=== PATIENT | female | born 1950 | race Caucasian/White ===

== ENCOUNTER 2024-03-16 11:04 | Outpatient (RCR) | payer MEDICARE, BC, SELFPAY ==
--- NOTE | 2024-03-01 15:28 | CTCTXPLN_ITS ---
[facility] [address] [place], [place] [address] Physician Clinical Treatment Planning Note Date of Service: 03/01/2024 Name: ASHLEE DAVEY SalasB.: 1950 The patient has agreed to proceed with Radiation therapy. Tests and supporting medical records were interpreted to assist in defining the tumor location and extent of disease. Further imaging will be necessary to contour and delineate the volume to which the XRT will be provided. A. Treatment Intent: Curative B. Modality: 6 MV C. Requested Technique: VMAT D. Treatment Site: Head and neck E. Critical structures to be contoured on plan: Head and neck F. In order to accomplish this plan, I am ordering/Prescribing the followin. Simulations (s) will be performed to accomplish a reproducible treatment position, to determine op timal treatment portals/beam arrangements, to design beam modifying devices and verify treatme head a nd neck nt portals on patient prior to the commencement of Radiation Therapy. 2. Devices; for immobilization and beam shaping: Aquaplast 3. CT Guidance for placement of XRT smallwood Scan area: 4. Portal images Frequency: 5. Invivo transit dose measurement once per week on all VMAT patients. 6. Special Physics Consult Requested for: 7. Other requests: G. Dose Objectives: Curative Electronically signed by: Renny Lai M.D. 03/01/2024 3:26 PM
--- NOTE | 2024-03-01 15:30 | CTCTXPLNST_ITS ---
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 Pt Treatment Intent: curative palliative other: Stage: Procedure CPT # Ordered Spec. Procedure 43008 Damian Complex (set-up) 01731 Head and neck 1 Damian Simple 87905 IMRT Plan 31328 1 MLC Devices VMAT 20097 3 Damian 3 D 15563 TRTMT dev Complex 79466 aquaplast 1 TRTMT dev simple 26990 Basic Bryant 65046 9 Special Dosimetry 16561 Spec Physics 70297 Port Films 15411 SRS Cranial/1FX 81319 SBR 5 FX or Less /ex: 5 = 5 fx 66784 IMRT Simple 11618 6000 30 IMRT Complex 03976 IGRT 57000 28 Rad del com 6-10 31590 Rad del com 11- 73394 Cont Med Physics 49586 6 Treatment Planning 35014 1 Rad del com 20 mev 92406 Rad del inter 6- 82115 Rad del inter 02-06 65244 Rad del simple 6-10 43034 Rad del simple 11- 21191 Special Port Plan 85432 TRTMT dev inter 70941 Isodose Complex 87807 Isodose simple 28158 Resp Motion Mgmt Simulation 65670 Placement of Fiducial Markers 40206 Electronically Signed By: Renny Lai MD, DABR 03/01/2024 3:27 PM
--- NOTE | 2024-03-02 17:10 | CTCFLWUP_ITS ---
[facility] [address] [place], [place] [address] FOLLOW-UP NOTE Date: 03/01/2024 MR#: [id number] Name: ASHLEE MARISCAL : 1950 Dx: C 41.1 SCCA CA mandible. Identification. Patient with diagnosis of squamous SCCA of the mandible, biopsy of left neck lymph n ode 11/11/2023. 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 PET scan 12/01/2023 hypermetabolic right submental masses with weekly hypermetabolic pulmonary nodules . CT chest 12/22/2023 at least 20 pulmonary nodules along with mediastinal lymphadenopathy. Spoke with Dr. Tate systems engineer in [place] who has followed patient along with [facility] that she is h ad these lung lesions for at least 2 years which appears to be nononcologic origin. MRI 12/08/2023, abnormal thickening anterior and posterior to the right body of the mandible with 1.1 cm asymmetrical focus enhancement right tongue base laterally. Mild soft tissue thickening right sub mandibular gland and right masseter and multiple nonenlarged 1 and 2 cervical lymph nodes. 2.6 cm le ft thyroid mass. Patient underwent major surgery at [place] for squamous cell CA the mandible With segmental mandibulectomy bilateral neck dissection split-thickness skin graft defect reconstruct ion with radial forearm free flap split-thickness skin graft. 02/01/2024. Final path revealed #!. Invasive keratinizing squamous SCCA 2.3 cm depth invasion 4.2 mm. #2. Lateral mandible periosteum focal cluster of a TPS cells less than 0.1 mm cannot exclude focal t umor involvement. #3. 1/3 level 1B lymph nodes left 0.7 cm metastatic squamous SCCA #4. 1 / 8 level 2 lymph node left 0.3 cm [id number] primary tumor site greater than 2 cm and multiple ipsilateral nodes less than 6 cm #5. Pulmonary nodules appear to be nononcologic origin according to systems engineer in [place] and [facility] which has followed patient [place] tumor board recommended radiation only Will treat to primary site and oral cavity approximately 6000 cGy with approximate 5400 centigray to the ipsilateral left neck and 4500 to 5000 cGy to nearby subclinical sites. Side effects explained. Electronically signed by: Renny Lai M.D. 03/02/2024 5:08 PM
== END 2024-03-20 23:59 | disposition home or self-care (01) ==
LOC: SCTC 11:04
PROVIDERS: PCP Family Medicine; Referring Provider Family Medicine; Visit Provider Radiology Therapeutic Radiology
DX: C41.1 Malignant neoplasm of mandible (principal); C77.0 Secondary and unspecified malignant neoplasm of lymph nodes of head, face and neck; R91.8 Other nonspecific abnormal finding of lung field
CPT/HCPCS: 77014; 77290; 77300; 77301; 77334; 77338; 99213; G0463

== ENCOUNTER 2024-04-20 11:21 | Outpatient (RCR) | payer MEDICARE, BC, SELFPAY | END 2024-04-20 23:59 | disposition home or self-care (01) | LOC: SCTC 11:21 | PROVIDERS: PCP Family Medicine; Referring Provider Family Medicine; Visit Provider Radiology Therapeutic Radiology | DX: Z51.0 Encounter for antineoplastic radiation therapy (principal); C41.1 Malignant neoplasm of mandible; C77.0 Secondary and unspecified malignant neoplasm of lymph nodes of head, face and neck; L59.9 Disorder of the skin and subcutaneous tissue related to radiation, unspecified; Y84.2 Radiological procedure and radiotherapy as the cause of abnormal reaction of the patient, or of later complication, without mention of misadventure at the time of the procedure | CPT/HCPCS: 77336; 77385 ==

== ENCOUNTER 2024-05-18 11:20 | Outpatient (RCR) | payer MEDICARE, BC, SELFPAY ==
--- NOTE | 2024-04-23 12:00 | CTCTRTNOTE_ITS ---
[facility] [address] [place], [place] [address] Weekly Management Date: 04/23/2024 ?? Name: ASHLEE MARISCAL : 1950 A. Patient is currently at 3230 cGy. B. Patient is tolerating treatment well. C. Patient is having the following side effects: Some pain upon swallowing and blisters in mouth.. Appears clean. D. . Keep using salt and soda solution. E. Hydrocodone syrup as needed. Reeval next Tuesday. Electronically signed by: Renny Lai M.D. 04/23/2024 11:57 AM
== END 2024-05-18 23:59 | disposition home or self-care (01) ==
LOC: SCTC 11:20
PROVIDERS: PCP Family Medicine; Referring Provider Family Medicine; Visit Provider Radiology Therapeutic Radiology
DX: Z51.0 Encounter for antineoplastic radiation therapy (principal); C41.1 Malignant neoplasm of mandible; C77.0 Secondary and unspecified malignant neoplasm of lymph nodes of head, face and neck; R91.8 Other nonspecific abnormal finding of lung field
CPT/HCPCS: 77336; 77385

== ENCOUNTER 2024-06-07 10:33 | Outpatient (RCR) | payer MEDICARE, BC, SELFPAY ==
--- NOTE | 2024-05-21 11:54 | CTCTRTNOTE_ITS ---
[facility] [address] [place], [place] [address] Weekly Management Date: 05/21/2024 ?? Name: ASHLEE MARISCAL : 1950 A. Patient is currently at 4940 cGy. B. Patient is experiencing moderate mucositis but still able to swallow. Using Magic mouthwash. Weight 131 stable. C. Resume radiation therapy. Finishes XRT this week. Electronically signed by: Renny Lai M.D. 05/21/2024 11:52 AM
== END 2024-06-18 23:59 | disposition home or self-care (01) ==
LOC: SCTC 10:33
PROVIDERS: PCP Family Medicine; Referring Provider Family Medicine; Visit Provider Radiology Therapeutic Radiology
DX: Z51.0 Encounter for antineoplastic radiation therapy (principal); C41.1 Malignant neoplasm of mandible; C77.0 Secondary and unspecified malignant neoplasm of lymph nodes of head, face and neck; K12.33 Oral mucositis (ulcerative) due to radiation; Y84.2 Radiological procedure and radiotherapy as the cause of abnormal reaction of the patient, or of later complication, without mention of misadventure at the time of the procedure
CPT/HCPCS: 77336; 77385; 99212; G0463

== ENCOUNTER 2024-07-04 13:59 | Outpatient (RCR) | payer MEDICARE, BC, SELFPAY ==
--- NOTE | 2024-06-20 13:53 | CTCFLWUP_ITS ---
[facility] 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 Patient made an extra appointment to see me today because patient had some discharges and a possible sinus infection and also felt that her face was getting redder and puffier later in the day. Patient had previously taken prednisone which made her face a bit more cushingoid. Took a picture of her face. Patient is lung was clear. And elected to place patient on Bactrim double strength twice daily for 10 days. Patient is allergic to penicillin and cannot take cephalosporins either. Gave son my email address to have me kept informed on her progress. Will evaluate her in 2 weeks. Electronically signed by: Renny Lai M.D. 06/20/2024 1:50 PM
== END 2024-07-18 23:59 | disposition home or self-care (01) ==
LOC: SCTC 13:59
PROVIDERS: PCP Family Medicine; Referring Provider Family Medicine; Visit Provider Radiology Therapeutic Radiology
DX: C08.0 Malignant neoplasm of submandibular gland (principal); Z88.0 Allergy status to penicillin; R91.8 Other nonspecific abnormal finding of lung field
CPT/HCPCS: 99212; 99213; G0463

== ENCOUNTER → 2024-07-17 | Outpatient (CLI) | payer MEDICARE, BC, SELFPAY ==
--- NOTE | 2024-07-17 09:30 | XR_ITS ---
EXAMINATION: PET/CT FUSION SKULL TO THIGH EXAM DATE AND TIME: July 17, 2024 1056 hours Comparison 12/01/2023 INDICATIONS: Diagnosis submandibular cancer, restaging post treatment, PET/CT scan 12/01/2023 hypermetabolic right submental masses 16 x 24 mm, 9 x 9 mm, weakly hypermetabolic pulmonary nodules, the largest in the left upper lobe 12 mm CTDI:vol (mGy) 4.65 DLP: (mGycm) 367 PROCEDURE: 13.6 mCi FDG was administered intravenously To allow for distribution and uptake of radiotracer, the patient was allowed to rest quietly in a shielded room. Imaging was performed on an integrated 16-slice PET/CT scanner, with scanning from the skull base to the mid thigh. Serum blood glucose at the time of the injection was measured 94 mg/dL. CT scanning was performed without oral or intravenous contrast material. FINDINGS: Head and Neck: 18 mm focus hypermetabolic activity in the posterior right oropharynx without obvious soft tissue mass on the corresponding CT examination 14 mm hypermetabolic focus right submental compared to [address] scan 12/01/2023 8mm submental hypermetabolic focus compared to 9 mm 12/01/2023 Chest: Hypermetabolic minimal left pleural disease Numerous bilateral subcentimeter pulmonary nodules which have increased in number several increased in size compared to the 12/01/2023 exam Abdomen and Pelvis: There is no matthieu hypermetabolism in retroperitoneal or pelvic chains. The spleen is normal in size and FDG avidity. Musculoskeletal: Marrow uptake is within normal range. IMPRESSION: Hypermetabolic right submental lymph nodes are smaller compared to the PET CT scan 12/01/2023 Progression of metastatic pulmonary nodular disease compared to PET CT scan December 01, 2023, suggest follow-up high-resolution CT chest without contrast to compare with the December 22, 2023 CT chest exam
== END | disposition home or self-care (01) ==
LOC: CDIM 09:16
PROVIDERS: PCP Radiology Therapeutic Radiology; Referring Provider Radiology Therapeutic Radiology; Visit Provider Radiology Therapeutic Radiology
DX: R91.1 Solitary pulmonary nodule (principal); C08.0 Malignant neoplasm of submandibular gland
CPT/HCPCS: 78815; A9552

== ENCOUNTER 2024-07-19 14:03 | Outpatient (RCR) | payer MEDICARE, BC, SELFPAY ==
--- NOTE | 2024-07-19 16:07 | CTCFLWUP_ITS ---
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 Patient with SCCA mandible underwent segmental mandibulectomy bilateral neck dissection split-thickness skin graft construction completed 02/01/2024 at [facility]. Final path revealedSCCA 2.3 cm depth of invasion 4.2 mm. Lateral mandibular periosteum focal cluster of TPS cells less than 0.1 mm could not include focal tumor involvement. 1/3 level 1B lymph nodes left 0.7 cm metastatic squamous cell CA. 1 of 8 level 2 lymph nodes left 0.3 cm. Postop XRT completed 05/24/2024 5700 cGy Patient states that she is still somewhat bothered by the swollen face but generally is having less pain and eating better. BP 182/80 weight 132 4 pound weight gain compared to 2 months ago. Mucositis improving. PET/CT 07/17/2024 hypermetabolic right submental lymph nodes smaller compared to prior PET with progression of metastatic nodular disease in lung compared to prior PET. Assessment.1. Stage Adelia [id number] primary tumor site greater than 2 cm and multiple ipsilateral lymph nodes less than 6 cm. 2. Check high-resolution CT of the chest without contrast as recommended. 3. See patient back again in 2 months. Electronically signed by: Renny Lai M.D. 07/19/2024 4:05 PM
== END 2024-08-18 23:59 | disposition home or self-care (01) ==
LOC: SCTC 14:03
PROVIDERS: PCP Family Medicine; Referring Provider Family Medicine; Visit Provider Radiology Therapeutic Radiology
DX: C08.0 Malignant neoplasm of submandibular gland (principal)
CPT/HCPCS: 99212; G0463

== ENCOUNTER → 2024-08-03 | Outpatient (CLI) | payer MEDICARE, BC, SELFPAY ==
[2024-08-03 09:34] LABS: Collection Type, Urine Clean Catch; Squamous Epithelial Cell,Urine 0 /hpf (0-5); WBC,Urine 0 /hpf (0-5)
[2024-08-03 10:30] LABS: Basophils # (Auto) 0.1 Thou/mm3 (0.0-0.2); Basophils % (Auto) 1 % (0-2.5); Eosinophils # (Auto) 0.4 Thou/mm3 (0.0-0.5); Eosinophils % (Auto) 5 % (0-10); Hematocrit 40.7 % (36.0-46.0); Hemoglobin 12.9 g/dL (12.0-16.0); Immature Granulocytes % (Auto) 1 % (0-0); Immature Granulocytes Auto 0.07 Thou/mm3 (0.00-0.00); Lymphocytes # (Auto) 0.7 Thou/mm3 (1.0-4.8); Lymphocytes % (Auto) 8 % (10-50); Mean Corpuscular HGB Conc 31.7 g/dl (31.0-37.0); Mean Corpuscular Hemoglobin 29.2 pg (25.0-35.0); Mean Corpuscular Volume 92 fL (80-100); Monocytes # (Auto) 0.9 Thou/mm3 (0.0-0.8); Monocytes % (Auto) 10 % (0-12); Neutrophils # (Auto) 6.6 Thou/mm3 (1.8-7.7); Neutrophils % (Auto) 76 % (37-80); Nucleated Red Blood Cell % 0 /100 WBC (0); Platelet Count 400 Thou/mm3 (140-440); RDW Standard Deviation 48.2 fL (36.4-46.3); Red Blood Count 4.42 Miln/mm3 (4.00-5.20); White Blood Count 8.7 Thou/mm3 (3.6-11.0)
[2024-08-03 10:52] LABS: Alanine Aminotransferase 19 U/L (10-49); Albumin, Serum 4.2 gm/dL (3.4-4.8); Albumin/Globulin Ratio 1.2 (1.2-2.2); Alkaline Phosphatase 131 U/L (46-116); Anion Gap 9 (7-16); Aspartate Amino Transferase 33 U/L (0-34); BUN/Creatinine Ratio 30 Ratio (12-20); Bilirubin,Total 0.4 mg/dL (0.3-1.2); Blood Urea Nitrogen 18 mg/dL (9-23); Calcium 9.2 mg/dL (8.3-10.6); Calcium (Corrected) 9.2 mg/dL (8.5-10.1); Carbon Dioxide 26.8 mMol/L (20.0-31.0); Cardiac Risk Estimate 3.5 RATIO (3.7-5.6); Chloride 102 mMol/L (98-107); Cholesterol 182 mg/dL (132-200); Creatinine (Component) 0.6 mg/dL (0.6-1.3); Globulin 3.4 gm/dL (2.3-3.5); Glucose 104 mg/dL (74-106); HDL Cholesterol 52 mg/dL (40-60); LDL Cholesterol,Calculated 88 mg/dL (0-130); Osmolality,Calculated 277 (275-295); Sodium 138 mMol/L (136-145); Total Protein 7.6 gm/dL (5.7-8.2); Triglycerides 208 mg/dL (30-150); Uric Acid 4.6 mg/dL (3.1-7.8); eGFR > 60 See Note
[2024-08-03 14:56] LABS: Bilirubin,Urine Negative (Negative); Blood,Urine Trace (Negative); Clarity,Urine Clear (Clear/Hazy); Color,Urine Lt-Yellow (Lt Yel-Yel); Glucose, Urine Negative (Negative); Ketones,Urine Negative (Negative); Leukocyte Esterase,Urine Negative (Negative); Nitrite,Urine Negative (Negative); Protein,Urine Negative (Neg - Trace); Specific Gravity,Urine 1.008 (1.001-1.035); Urobilinogen,Urine Negative mg/dL (0.0-1.0)
[2024-08-03 16:15] LABS: RBC,Urine 1 /hpf (0-3)
[2024-08-03 16:16] LABS: Bacteria,Urine Rare
== END | disposition home or self-care (01) ==
LOC: COPL 09:05
PROVIDERS: PCP Family Medicine; Referring Provider Family Medicine; Visit Provider Family Medicine
DX: Z00.00 Encounter for general adult medical examination without abnormal findings (principal); L43.8 Other lichen planus; I10 Essential (primary) hypertension; E78.2 Mixed hyperlipidemia; E79.2 Myoadenylate deaminase deficiency; D64.9 Anemia, unspecified; C03.1 Malignant neoplasm of lower gum; E87.5 Hyperkalemia
CPT/HCPCS: 36415; 80053; 80061; 81001; 84550; 85025

== ENCOUNTER 2024-10-11 14:57 | Outpatient (RCR) | payer MEDICARE, BC, SELFPAY ==
--- NOTE | 2024-09-18 17:17 | CTCFLWUP_ITS ---
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 Patient with SCCA Mandible gingiva underwent segmental mandibulectomy bilateral neck dissection split-thickness skin graft construction completed 02/01/2024 at [facility] Final path revealed SCCA 2.3 cm depth invasion 4.2 mm. Lateral mandibular periosteum focal cluster of TPS cells less than 0.1 mm and could not exclude focal tumor involvement.. 1 of 3 level 1B lymph nodes left 0.7 cm metastatic squamous of CA. 1 of 8 level 2 lymph nodes left 0.3 cm met CA. Postop XRT completed 05/24/2024 5700 Has had residual facial swelling and moderate discomfort in the oral cavity. Results see patient today she actually appears better than previously. Had CT scan performed at [facility] postsurgery 08/22/2024. Radiation changes no cervical lymphadenopathy opacification of segmental bronchi and visualized lungs with scattered parenchymal nodules similar to PET of 07/17/2024 appearing complex. This could be infection or inflammation which requires regular checkups. According to radiologist. All in all patient appears to have an satisfactory outcome following surgery and postop radiation. Assessment #1 stage Maxim [id number] mandibular gingiva status post mandibulectomy bilateral neck dissection [facility]. 02/01/2024 #2. postop XRT 5700 centigray completed 05/24/2024. #3. clinical exam and radiographs PET and CT with no sign of recurrence or obvious mets. #4. History of lichen planus oral cavity alpha-1 antitrypsin deficiency .#5. Will see her back in 4 months for follow-up with a new CT scan and also has a follow-up at [facility] Lety Dinh MD Electronically signed by: Renny Lai M.D. 09/18/2024 5:15 PM
== END 2024-10-18 23:59 | disposition home or self-care (01) ==
LOC: SCTC 14:57
PROVIDERS: PCP Family Medicine; Referring Provider Family Medicine; Visit Provider Radiology Therapeutic Radiology
DX: Z08 Encounter for follow-up examination after completed treatment for malignant neoplasm (principal); Z85.818 Personal history of malignant neoplasm of other sites of lip, oral cavity, and pharynx; Z92.3 Personal history of irradiation; Z90.09 Acquired absence of other part of head and neck; Z87.2 Personal history of diseases of the skin and subcutaneous tissue; E88.01 Alpha-1-antitrypsin deficiency
CPT/HCPCS: 99213; G0463

== ENCOUNTER → 2024-11-13 | Outpatient (CLI) | payer MEDICARE, BC, SELFPAY ==
--- NOTE | 2024-11-13 13:15 | XR_ITS ---
Examination: Breast ultrasound complete, bilateral Date and time of exam: November 13, 2024 1252 hrs. Indications: Diagnosis fibrocystic breast disease Technique: Real-time grayscale ultrasonographic imaging bilateral breasts, including all 4 quadrants as well as nipple retroareolar and axillary regions. Findings: Sonographic images right breast Multiple benign cysts Retroareolar circumscribed nodule 4 x 5 mm Sonographic images left breast Benign cyst 2:00 nodule circumscribed 5 x 5 mm 2:00 nodule circumscribed 4 x 3 mm Impression: BI-RADS Category 3: Probably benign findings One additional 6 month bilateral breast sonography follow-up is needed to document stability of solid nodules described above
--- NOTE | 2024-11-13 14:15 | XR_ITS ---
Examination: Screening digital mammography, bilateral Computer aided detection 3-D breast Tomosynthesis, bilateral Date and time of exam: 11/13/2024, 2:38 PM Comparisons: August 2019 through May 2023 Indications: Screening Technique: Nonmagnified MLO, CC views of the breasts to been obtained, reconstructed from 3-D Tomosynthesis images. R2 computer aided detection program utilized for evaluation of suspicious masses and/or abnormal calcifications. 3-D Tomosynthesis images obtained. Technologist: Findings: The breasts are heterogeneously dense, which may obscure small masses. No evidence of abnormal masses or suspicious calcifications. Impression: BI-RADS category 1: Negative findings (within normal) Recommend 1 year follow-up mammogram
== END | disposition home or self-care (01) ==
PROVIDERS: PCP Family Medicine; Referring Provider Specialist; Visit Provider Specialist
DX: Z12.31 Encounter for screening mammogram for malignant neoplasm of breast (principal); R92.313 Mammographic fatty tissue density, bilateral breasts; N63.41 Unspecified lump in right breast, subareolar; N63.21 Unspecified lump in the left breast, upper outer quadrant
CPT/HCPCS: 76641; 77063; 77067

== ENCOUNTER → 2024-12-19 | Outpatient (CLI) | payer MEDICARE, BC, SELFPAY ==
[2024-12-19 13:34] LABS: Basophils # (Auto) 0.1 Thou/mm3 (0.0-0.2); Basophils % (Auto) 1 % (0-2.5); Eosinophils # (Auto) 0.5 Thou/mm3 (0.0-0.5); Eosinophils % (Auto) 7 % (0-10); Hematocrit 41.5 % (36.0-46.0); Hemoglobin 13.0 g/dL (12.0-16.0); Immature Granulocytes Auto 0.02 Thou/mm3 (0.00-0.00); Lymphocytes # (Auto) 1.1 Thou/mm3 (1.0-4.8); Lymphocytes % (Auto) 15 % (10-50); Mean Corpuscular HGB Conc 31.3 g/dl (31.0-37.0); Mean Corpuscular Hemoglobin 29.3 pg (25.0-35.0); Mean Corpuscular Volume 94 fL (80-100); Monocytes # (Auto) 0.7 Thou/mm3 (0.0-0.8); Monocytes % (Auto) 10 % (0-12); Neutrophils # (Auto) 4.8 Thou/mm3 (1.8-7.7); Neutrophils % (Auto) 67 % (37-80); Nucleated Red Blood Cell # 0.00 Thou/mm3 (0.00-0.00); Nucleated Red Blood Cell % 0 /100 WBC (0); Platelet Count 346 Thou/mm3 (140-440); RDW Standard Deviation 45.6 fL (36.4-46.3); Red Blood Count 4.43 Miln/mm3 (4.00-5.20); White Blood Count 7.2 Thou/mm3 (3.6-11.0)
[2024-12-19 13:58] LABS: Alanine Aminotransferase 20 U/L (10-49); Albumin, Serum 4.1 gm/dL (3.4-4.8); Albumin/Globulin Ratio 1.4 (1.2-2.2); Alkaline Phosphatase 141 U/L (46-116); Anion Gap 8 (7-16); Aspartate Amino Transferase 39 U/L (0-34); BUN/Creatinine Ratio 27 Ratio (12-20); Bilirubin,Total 0.3 mg/dL (0.3-1.2); Blood Urea Nitrogen 16 mg/dL (9-23); Calcium 9.6 mg/dL (8.3-10.6); Calcium (Corrected) 9.6 mg/dL (8.5-10.1); Carbon Dioxide 28.7 mMol/L (20.0-31.0); Chloride 101 mMol/L (98-107); Creatinine (Component) 0.6 mg/dL (0.6-1.3); Globulin 2.9 gm/dL (2.3-3.5); Glucose 109 mg/dL (74-106); Osmolality,Calculated 277 (275-295); Potassium 4.8 mMol/L (3.4-5.1); Sodium 138 mMol/L (136-145); Total Protein 7.0 gm/dL (5.7-8.2); eGFR > 60 See Note
== END | disposition home or self-care (01) ==
LOC: COPL 11:41 → SCTO 11:41
PROVIDERS: PCP Family Medicine; Referring Provider Radiology Therapeutic Radiology; Visit Provider Radiology Therapeutic Radiology
DX: C08.0 Malignant neoplasm of submandibular gland (principal)
CPT/HCPCS: 36415; 80053; 85025

== ENCOUNTER → 2024-12-20 | Outpatient (CLI) | payer MEDICARE, BC, SELFPAY ==
--- NOTE | 2024-12-20 11:30 | XR_ITS ---
Examination: CT soft tissue neck, with intravenous contrast CT chest with intravenous contrast 2-D coronal reconstructions. 2-D sagittal reconstructions. Date and time of exam :December 20, 2024, 1217 hours, comparison PET/CT scan July 17, 2024, CT chest December 22, 2023 INDICATIONS: Diagnosis malignant neoplasm submandibular gland, throat discomfort one year, status post surgery in the neck, PET/CT scan July 17, 2024 hypermetabolic submental lymph nodes. CTDI: vol (mGy):20.1 DLP: (mGycm):645 Technique: 1.25 mm axial sections of the neck and chest post intravenous administration 60 cc Isovue-370 Coronal and sagittal reconstructions have been obtained. Low dose protocols were performed. One or more of the following dose reduction techniques were used; automated exposure control, adjustment of the mA and/or KV according to patient size, use of iterative reconstruction technique. Findings: 17 mm left thyroid nodule Significant right maxillary sinus disease Symmetrical nasopharynx oropharynx Post surgical changes in the submandibular region without malignant lymphadenopathy Multiple surgical clips surrounding the mandible Right carotid vascular calcification The larynx appears normal The epiglottis appears normal No thoracic aortic aneurysmal dilatation No pulmonary artery filling defects No paratracheal tracheobronchial or bronchopulmonary adenopathy Multiple bilateral pulmonary nodules A 7 mm pulmonary nodule left upper lobe on the prior study is not identified on this exam The 12 mm pulmonary nodule right upper lobe is not identified on this study No interval pneumonia or pulmonary edema Fatty infiltration throughout the liver Prominent osteopenia, advanced disc narrowing C5-C6 Vision impression:: 17 mm left thyroid nodule Significant right Sinus disease Postsurgical changes in the submental region without malignant lymphadenopathy Improvement in pulmonary nodular metastatic disease with at least 2 nodules noted on prior study not identified on the current exam, suggest continued follow-up CT chest without contrast
== END | disposition home or self-care (01) ==
LOC: CCTX 10:59
PROVIDERS: PCP Family Medicine; Referring Provider Radiology Therapeutic Radiology; Visit Provider Radiology Therapeutic Radiology
DX: E04.1 Nontoxic single thyroid nodule (principal); C78.00 Secondary malignant neoplasm of unspecified lung; C08.0 Malignant neoplasm of submandibular gland
CPT/HCPCS: 70491; 71260; A4649; Q9967

== ENCOUNTER → 2025-01-30 | Outpatient (CLI) | payer MEDICARE, BC, SELFPAY ==
[2025-01-30 12:25] LABS: Free T3 3.2 pg/mL (2.3-4.2); Free T4 (Free Thyroxine) 1.20 ng/dL (0.89-1.76); Thyroid Stimulating Hormone 0.71 uIU/mL (0.55-4.78)
== END | disposition home or self-care (01) ==
LOC: COPL 11:13
PROVIDERS: PCP Family Medicine; Referring Provider Family Medicine; Visit Provider Family Medicine
DX: E04.1 Nontoxic single thyroid nodule (principal)
CPT/HCPCS: 36415; 84439; 84443; 84481

== ENCOUNTER 2025-01-31 14:30 | Outpatient (RCR) | payer MEDICARE, BC, SELFPAY ==
--- NOTE | 2025-01-31 15:14 | CTCFLWUP_ITS ---
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 Patient with squamous SCCA mandible gingiva underwent segmental mandibulectomy bilateral neck dissection split-thickness skin graft construction completed 02/01/2024 at [facility]. Final path revealed SCCA 2.3 cm depth of invasion 4.2 mm. Lateral mandibular periosteum cluster of TPS cells less than 0.1 mm and cannot exclude focal tumor involvement. 1/ level 1B lymph nodes left 0.7 cm metastatic squamous SCCA. 07/17/2024/ Level 2 lymph nodes left 0.3 mm met CA. Tumor stage LUPE [id number] primary tumor size greater than 2 cm and multiple ipsilateral lymph nodes less than 6 cm. Postop XRT completed 05/24/2024 5700 cGy. TFTs ordered by primary care physician which were euthyroid. Posttreatment PET hypermetabolic right seventh lymph node smaller whereas there was suggestion of progression of pulmonary nodular disease. CT scan neck chest 01-12 revealed postsurgical changes in submental region without malignant lymphadenopathy and improvement in pulmonary nodular disease 17 mm left thyroid nodule noted. A#!. Stage LUPE pT2 pN2b mandibular gingiva status post mandibulectomy bilateral neck dissection [facility] 02/01/2024. A#2, postop XRT 5700 cGy completed 05/24/2024. A#3. Clinical exam and radiographs PET and CT with no sign of recurrence or obvious mets. A#4. History of lichen planus oral cavity alpha-1 antitrypsin deficiency. A#5. Recent [facility] eval reportedly unremarkable. Has follow-up in 4 months. A#6. I will also see her back in 4 months time. Electronically signed by: Renny Lai M.D. 01/31/2025 3:11 PM
== END 2025-02-17 23:59 | disposition home or self-care (01) ==
LOC: SCTC 14:30
PROVIDERS: PCP Family Medicine; Referring Provider Family Medicine; Visit Provider Radiology Therapeutic Radiology
DX: C08.0 Malignant neoplasm of submandibular gland (principal); Z92.3 Personal history of irradiation
CPT/HCPCS: 99213; G0463